=== PATIENT | female | born 2005 | race Caucasian/White ===

== ENCOUNTER 2024-02-09 19:03 | Emergency (ER) | payer OTHER ==
[~2024-02-09] VITALS: Ht 160 cm; Wt 62.6 kg
[2024-02-09] MEDS ORDERED: TRAZODONE HCL5 GM (20:16)
[2024-02-09] MEDS ORDERED: VRAYLAR1.5 MG PO (20:17)
[2024-02-09] MEDS ORDERED: ESCITALOPRAM OX20 MG PO (20:17)
[2024-02-09] MEDS ORDERED: TESTONE CI200 MG/1 M IM (20:19)
[2024-02-09] MEDS ORDERED: ADDERALL 20 MG20 MG PO (20:39)
[2024-02-09 20:41] LABS: BASOPHILS 0.5 % (0-2); EOSINOPHILS 0.4 % (0-6); HEMATOCRIT 37.8 % (35.0-50.0); HEMOGLOBIN 13.1 g/dL (12.0-18.0); LYMPHOCYTES 22.7 % (24-44); MCHC 34.7 g/dl (30-36); MCV 89.4 fl (81-99); MONOCYTES 7.7 % (0-12); NEUTROPHILS 68.7 % (39-80); PLATELET COUNT 257 K/uL (140-440); RBC 4.24 M/ul (4.3-5.7); RDW 12.8 (10.5-15.0)
[2024-02-09 20:59] LABS: BILIRUBIN, URINE NEGATIVE (negative); BLOOD/HGB, URINE NEGATIVE (Negative); KETONE, URINE SMALL (Negative); LEUK ESTERASE, URINE NEGATIVE (negative); NITRITE, URINE NEGATIVE (negative)
[2024-02-09 21:01] LABS: ALBUMIN 4.5 g/dL (3.4-5.0); ALBUMIN/GLOBULIN RATIO 1.36 (1.1-2.4); ANION GAP 13.6 (7-21); BILIRUBIN, TOTAL 0.5 ng/dL (0.2-1.0); BUN/CREATININE RATIO 14.1 (6.0-28.6); CALCIUM 9.6 mg/dL (8.5-10.1); CREATININE, SERUM 0.78 mg/dL (0.55-1.02); POTASSIUM 3.6 mmol/L (3.5-5.1); PROTEIN, TOTAL 7.8 g/dL (6.4-8.2)
[2024-02-09 21:50] VITALS: BP 118/87
== END 2024-02-09 21:51 | disposition home or self-care (01) ==
LOC: ED 19:03
PROVIDERS: Family Medicine
DX: G40.909 Epilepsy, unspecified, not intractable, without status epilepticus (principal); F31.9 Bipolar disorder, unspecified; Z88.8 Allergy status to other drugs, medicaments and biological substances; Z91.018 Allergy to other foods; Z79.899 Other long term (current) drug therapy
CPT/HCPCS: 36415; 80053; 81003; 83735; 84703; 85025; 99284

== ENCOUNTER 2024-04-23 13:10 | Emergency (ER) | payer OTHER ==
[~2024-04-23] VITALS: Ht 160 cm; Wt 62.7 kg
[~2024-04-23 13:10] MED LIST: ADDERALL 20 MG20 MG PO; ESCITALOPRAM OX20 MG PO; TESTONE CI200 MG/1 M IM; TRAZODONE HCL5 GM; VRAYLAR1.5 MG PO
[2024-04-23 13:30] VITALS: BP 115/81
[2024-04-23] MEDS ORDERED: CEFTRIAXONE SOD 500 MG VIAL IM ONE (14:45)
[2024-04-23] MEDS ORDERED: metroNIDAZOLE 250 MG TAB PO ONE (14:45)
[2024-04-23] MEDS ORDERED: DOXYCYCLINE HYCLATE 100 MG CAP PO ONE (14:45)
[2024-04-23] MEDS ORDERED: levonorgestreL 1.5 MG TAB PO ONE (14:45)
[2024-04-23] MEDS ORDERED: METRONIDAZOLE500 MG PO (16:09)
[2024-04-23] MEDS ORDERED: DOXYCYCLINE HY100 MG PO (16:10)
== END 2024-04-23 18:31 | disposition home or self-care (01) ==
LOC: ED 13:10 → EDSEX 13:10 → ED 13:14 → EDSEX 13:14 → ED 18:31
DX: T74.21XA Adult sexual abuse, confirmed, initial encounter (principal); F64.0 Transsexualism; G40.909 Epilepsy, unspecified, not intractable, without status epilepticus; Z91.018 Allergy to other foods; Z88.8 Allergy status to other drugs, medicaments and biological substances; Z79.899 Other long term (current) drug therapy
CPT/HCPCS: 84703; 99284

== ENCOUNTER 2024-10-26 20:37 | Emergency (ER) | payer OTHER ==
[~2024-10-26] VITALS: Ht 160 cm; Wt 68.0 kg
[~2024-10-26 20:37] MED LIST changes: +DOXYCYCLINE HY100 MG PO; +METRONIDAZOLE500 MG PO
[2024-10-26] MEDS ORDERED: LIDOCAINE & ANTACID 35 ML BTL PO ONE (21:00)
[2024-10-26 21:19] LABS: BASOPHILS 0.7 % (0.1-1.2); EOSINOPHILS 2.5 % (0.7-5.8); HEMATOCRIT 40.1 % (34.1-44.9); HEMOGLOBIN 13.8 g/dL (11.2-15.7); LYMPHOCYTES 35.5 % (19.3-51.7); MCH 30.1 PG (25.6-32.2); MCHC 34.4 g/dL (32.2-35.5); MCV 87.4 fL (79.4-94.8); MONOCYTES 10.6 % (4.7-12.5); NEUTROPHILS 50.7 % (34.0-71.1); PLATELET COUNT 269 K/uL (182-369); RBC 4.59 M/uL (3.93-5.22)
[2024-10-26 21:30] LABS: BILIRUBIN, URINE NEGATIVE (negative); BLOOD/HGB, URINE NEGATIVE (Negative); KETONE, URINE NEGATIVE (Negative); LEUK ESTERASE, URINE SMALL (negative); NITRITE, URINE NEGATIVE (negative)
[2024-10-26 21:35] LABS: ALBUMIN 3.9 g/dL (3.4-5.0); ALBUMIN/GLOBULIN RATIO 1.11 (1.1-2.4); ANION GAP 12.1 (7-21); BILIRUBIN, TOTAL 0.4 mg/dL (0.2-1.0); BUN/CREATININE RATIO 13.97 (6.0-28.6); CALCIUM 9.2 mg/dL (8.5-10.1); CREATININE, SERUM 0.93 mg/dL (0.55-1.02); POTASSIUM 4.1 mmol/L (3.5-5.1); PROTEIN, TOTAL 7.4 g/dL (6.4-8.2)
[2024-10-26 21:37] LABS: BACTERIA, URINE 1+ /hpf (negative); CASTS, URINE NONE SEEN \\lpf; CRYSTALS, URINE NONE SEEN (0-1+); EPITHELIAL CELLS, URINE SQUAMOUS 3+ /lpf (0-1+); RED BLOOD CELLS, URINE 0-1 /hpf (0-5)
[2024-10-26 21:38] LABS: COLLECTION TYPE, URINE CLEAN CATCH; REFLEX CULTURE, URINE No (No)
[2024-10-26] MEDS ORDERED: PROTONIX40 MG PO (22:09)
[2024-10-26] MEDS ORDERED: CEPHALEXIN500 M1 PO (22:09)
[2024-10-26] MEDS ORDERED: CEPHALEXIN MONOHYDRATE 500 MG HOME.PACK PO ONE (22:15)
[2024-10-26] MEDS ORDERED: PANTOPRAZOLE SODIUM 40 MG TABEC PO ONE (22:15)
[2024-10-26 22:25] VITALS: BP 97/64
== END 2024-10-26 22:27 | disposition home or self-care (01) ==
LOC: ED 20:37
PROVIDERS: Emergency Medicine
DX: N39.0 Urinary tract infection, site not specified (principal); R10.13 Epigastric pain; T78.1XXA Other adverse food reactions, not elsewhere classified, initial encounter; R06.02 Shortness of breath; R11.10 Vomiting, unspecified; Z91.018 Allergy to other foods; Z79.899 Other long term (current) drug therapy; F64.0 Transsexualism
CPT/HCPCS: 36415; 80053; 81001; 83690; 84703; 85025; 99284; A9270